=== PATIENT | male | born 1970 | race Caucasian/White ===

== ENCOUNTER → 2019-10-09 | Outpatient (CLI) | payer OTHER ==
--- NOTE | 2019-10-09 15:48 | Diagnostic Imaging Report ---
EXAMINATION: C-SPINE COMP. W/FLEX EXT INDICATION: Cervical dystonia COMPARISON: None FINDINGS: AP, lateral, odontoid and oblique images of the cervical spine were obtained. Lateral images were obtained in neutral, flexion and extension. No fracture or dislocation. Vertebral body heights are maintained. There is exaggerated lordosis of the lower cervical spine and straightening of the normal curvature at the upper cervical spine. Vertebral body alignment is anatomic. Minimal multilevel degenerative changes. The prevertebral soft tissues are normal in thickness. The minimally visualized lung apices demonstrate biapical pleural parenchymal thickening/scarring. IMPRESSION: Exaggerated lordosis of the lower cervical spine and straightening of the upper cervical spine. No acute fracture or dislocation. Signed by: Kristi Bernstein MD on 10/09/2019 3:45 PM
== END ==
LOC: RAD 13:03
PROVIDERS: ATTEND Anesthesiology
DX: G24.8 Other dystonia (principal)
CPT/HCPCS: 72052